=== PATIENT | male | born 1950 | race Caucasian/White ===

== ENCOUNTER 2019-03-14 12:55 | Day surgery (SDC) | payer MEDICARE ==
[~2019-03-14] VITALS: Ht 188 cm; Wt 93.4 kg
[~2019-03-14 12:55] MED LIST: LOVASTATIN20 MG PO
--- NOTE | 2019-03-14 15:31 | NUR ---
03/14/19 1531 Charley Espino 1502 PT ARRIVED IN PACU AWAKE TALKING TO STAFF. ABD SOFT. 1510 DR AT BESIDE TALKING WITH PT. NO C/O'S. 1525 AWAKE SITTING UP IN BED.
--- NOTE | 2019-03-15 10:51 | OR ---
[facility] [address] [place], [place] [address] Signed DATE OF OPERATION: 03/14/2019 SURGEON: Evgeny Sweet MD PREOPERATIVE DIAGNOSES: 1. Colon screening. 2. Family history of polyp (brother). POSTOPERATIVE DIAGNOSES: 1. Polyp at 45 cm (excised). 2. Diverticulosis. PROCEDURE PERFORMED: Total colonoscopy to cecum with cold morcellation polypectomy x1. ANESTHESIA: Intravenous sedation, fentanyl 100 mcg, Versed 7 mg. INDICATION: This 68-year-old white man is a patient of YARON De La Vega. He has never had colonoscopy in the past. He is symptom free having no bleeding, diarrhea, or constipation. He does have family history of a brother with colon polyps in the past, but no family history of colon cancer that he is aware of. He is admitted to undergo colonoscopy for the first time. He understands the risk of bleeding, infection, and perforation. FINDINGS: The prep was excellent. Complete colonoscopy was undertaken of the cecum without question. Numerous diverticula were seen in the sigmoid and left colon. There was a polyp of 45 cm, which was excised. The remaining colon was normal. DESCRIPTION OF PROCEDURE: The patient was brought to the endoscopy suite and placed in lateral decubitus position, given intravenous sedation to the point of slurred speech and nystagmus. Digital rectal examination was normal. An Olympus video colonoscope was passed in the rectum and manipulated into the colon. Numerous diverticula were seen in the sigmoid and left colon. With all due care, was passed and ultimately scope passed to the cecum itself. Ileocecal valve and appendiceal orifice were normal. Electronically Signed By: EVGENY SWEET MD 03/15/19 1051 PATIENT NAME: SHANNON FORDE OPERATIVE REPORT DATE OF : 54 REPORT #: [id number] PHYSICIAN: EVGENY SWEET MD PCP: VALERIANO CABAN REPORT IS CONFIDENTIAL AND NOT TO BE RELEASED WITHOUT AUTHORIZATION [facility] [address] [place], [place] [address] Signed Scope was carefully withdrawn from that point and examination throughout showed no sign of abnormality until 45 cm from the anal verge, where a small polyp was noted. It may be hyperplastic. It was about 8 mm in size. It was excised with cold morcellation technique. Further withdrawal of scope confirmed additional diverticula in the sigmoid. Retroflexed view of the rectum was normal. Scope was removed. The patient was taken to recovery room in good condition. CONCLUDING DIAGNOSES: 1. Polyp at 45 cm (excised). 2. Diverticulosis. PLAN: Recommend repeat colonoscopy in 5 years, sooner if symptoms should occur. A high-fiber diet would be recommended as well. He will return to the ongoing care of YARON De La Vega. MD JOSH Ramirez/JERICA /[id number] cc: YARON Blanton Copies: VALERIANO CABAN ~ Electronically Signed By: EVGENY SWEET MD 03/15/19 1051 PATIENT NAME: SHANNON FORDE BREA OPERATIVE REPORT DATE OF : 54 REPORT #: [id number] PHYSICIAN: EVGENY SWEET MD PCP: VALERIANO CABAN REPORT IS CONFIDENTIAL AND NOT TO BE RELEASED WITHOUT AUTHORIZATION
--- NOTE | 2019-03-15 15:53 | PATH ---
[facility] [address] [place] [id number] Signed SPECIMEN(S): A COLON POLYP AT 35 CM SPECIMEN SOURCE: A. COLON POLYP AT 35 CM CLINICAL HISTORY: Screening. Postop: Polyp and diverticulosis. MICROSCOPIC DESCRIPTION: Histologic sections of all submitted blocks are examined by light microscopy. These findings, together with the gross examination, support the pathologic diagnosis. FINAL PATHOLOGIC DIAGNOSIS: Mucosa, colon at 35 cm, biopsy: - Hyperplastic polyp. LJA:cml:C2NR GROSS DESCRIPTION: The specimen, labeled "CH, colon polyp at 35 cm," is received in formalin and consists of two, 0.1-0.2 cm rodriguez fragments. Specimen is entirely submitted in cassette (A1). AM (under the direct supervision of a pathologist) The Gross Description was prepared using a voice recognition system. The report was reviewed for accuracy; however, sound-alike word errors, addition and/or deletions may occur. If there is any question about this report, please contact Client Services. PERFORMING LABORATORY: The technical component was performed by [facility], [address] [place] [id number] (Fashion Merchandiser: Analia Ortiz MD; CLIA# [id number]). [facility] interpretation was [facility] by [email or web address], [address] [address] (Fashion Merchandiser: Bryan Serrano MD; CLIA# [id number]). Diagnostician: Bryan Serrano MD Pathologist Electronically Signed 03/15/2019 Copies: PATIENT NAME: SHANNON FORDE PATHOLOGY DATE OF : 54 REPORT #: [id number] PHYSICIAN: JUN PEARCE PCP: VALERIANO CABAN REPORT IS CONFIDENTIAL AND NOT TO BE RELEASED WITHOUT AUTHORIZATION [address] [address] Signed ~ PATIENT NAME: SHANNON FORDE PATHOLOGY DATE OF : 54 REPORT #: [id number] PHYSICIAN: JUN PEARCE PCP: VALERIANO CABAN REPORT IS CONFIDENTIAL AND NOT TO BE RELEASED WITHOUT AUTHORIZATION
== END 2019-03-14 15:40 | disposition home or self-care (01) ==
LOC: OPS 12:55 → DS 13:07 → OPS 14:00
PROVIDERS: Surgery
PROC: 0DBE8ZZ Excision of Large Intestine, Via Natural or Artificial Opening Endoscopic (ICD-10-PCS; principal; 2019-03-14 14:00)
DX: Z12.11 Encounter for screening for malignant neoplasm of colon (principal); K63.5 Polyp of colon; K57.30 Diverticulosis of large intestine without perforation or abscess without bleeding; Z86.010 Personal history of colon polyps; Z87.891 Personal history of nicotine dependence
CPT/HCPCS: 99153; G0500; J2250; J3010; J7120

== ENCOUNTER 2023-02-06 09:14 | Emergency (ER) | payer MEDICARE ==
[~2023-02-06] VITALS: Ht 185.4 cm; Wt 92.7 kg
[~2023-02-06 09:14] MED LIST changes: +ASPIRIN EC325 MG PO; +CENTRUM MEN'S1 EACH PO; +DICLOFENAC SODI75 MG PO; +DILAUDID4 MG PO; +GABAPENTIN600 MG PO
[2023-02-06 10:14] LABS: INFLUENZA B NAA NEGATIVE (NEGATIVE); RESPIRATORY SYNCYTIAL VIR NAA NEGATIVE (NEGATIVE)
[2023-02-06] MEDS ORDERED: PAXLOVID 300-11 EACH PO ×2 (10:55→11:40)
[2023-02-06 11:09] LABS: BASOPHILS 0.5 % (0-2); EOSINOPHILS 1.7 % (0-6); HEMATOCRIT 47.5 % (35.0-50.0); HEMOGLOBIN 16.6 g/dL (12.0-18.0); LYMPHOCYTES 9.7 % (24-44); MCH 30.3 (27-36); MCHC 34.9 g/dl (30-36); MCV 86.7 fl (81-99); MONOCYTES 8.4 % (0-12); NEUTROPHILS 79.7 % (39-80); PLATELET COUNT 170 K/uL (140-440); RBC 5.48 M/ul (4.3-5.7); RDW 13.2 (10.5-15.0)
[2023-02-06 11:17] LABS: ANION GAP 8.4 (7-21); BUN/CREATININE RATIO 14.73 (6.0-28.6); CALCIUM 9.5 mg/dL (8.5-10.1); CREATININE, SERUM 0.95 mg/dL (0.70-1.30); POTASSIUM 3.4 mmol/L (3.5-5.1)
[2023-02-06 11:54] VITALS: BP 137/79
== END 2023-02-06 11:50 | disposition home or self-care (01) ==
LOC: ED 09:14
PROVIDERS: Emergency Medicine
DX: U07.1 COVID-19 (principal); I10 Essential (primary) hypertension; E78.00 Pure hypercholesterolemia, unspecified; Z87.891 Personal history of nicotine dependence; Z79.899 Other long term (current) drug therapy
CPT/HCPCS: 36415; 80048; 85025; 87502; 96374; 99283-25; C9803; J1885; U0002

== ENCOUNTER 2024-09-18 11:45 | Day surgery (SDC) | payer MEDICARE ==
[~2024-09-18] VITALS: Ht 188 cm; Wt 91.4 kg
[~2024-09-18 11:45] MED LIST changes: +CEFAZOLIN SODIUM 2 GM/20 ML SYR IV SCH; +IBLOOD GLUCOSE TEST STRIP 1 EA TEST VI PRN; +INDAPAMIDE2.5 MG PO; +LACTATED RINGER'S 1,000 ML IV SCH; +LIDOCAINE HCL 1% 5 ML SDV INJ ONE; +MIDAZOLAM HCL 5 MG/5 ML VIAL IV PRN; +PAXLOVID 300-11 EACH PO; +SILDENAFIL20 MG PO; +fentaNYL citrate 100 MCG/2 ML VIAL IV PRN
[2024-09-18] MEDS ORDERED: MIDAZOLAM HCL 5 MG/5 ML VIAL ONE (12:21)
[2024-09-18] MEDS ORDERED: fentaNYL citrate 100 MCG/2 ML VIAL ONE (12:21)
[2024-09-18 12:29] VITALS: BP 139/86
--- NOTE | 2024-09-18 13:55 | NUR ---
09/18/24 1355 Mei Arredondo 1347-PT ARRIVES TO PACU VIA STRETCHER, RESTING ON LT SIDE. PT A+OX4, DENIES PAIN OR NAUSEA, VSS ON 2L VIA NC, PT ENCOURAGED TO PASS GAS. 1350-PT TITRATED TO RA, VS REMAIN STABLE.
[2024-09-18 14:34] VITALS: BP 123/70
--- NOTE | 2024-09-20 11:03 | OR ---
[facility] [address] [place], [place] [address] Signed DATE OF OPERATION: 09/18/2024 SURGEON: Evgeny Sweet MD PREOPERATIVE DIAGNOSES: 1. Family history of colon cancer (mother age 41). 2. History of hyperplastic polyps and diverticulosis. POSTOPERATIVE DIAGNOSES: Sigmoid diverticulosis and hyperplastic polyps of rectosigmoid. PROCEDURE: Total colonoscopy to cecum with cold morcellation polypectomy x3. ANESTHESIA: Intravenous sedation; fentanyl 100 mcg and Versed 4 mg. INDICATION: This 73-year-old white man is a patient of Nataliya Stokes and known to me from the past having undergone colonoscopy in 2019. He was recommend to have repeat in 5 years based on family history of colon cancer in his mother. At the time of his previous colonoscopy, he had diverticulosis as well as hyperplastic polyps. He is admitted at this time to undergo colonoscopy. He understands the risk of bleeding, infection, and perforation. FINDINGS: The prep was good. Complete colonoscopy was undertaken of the cecum. He had numerous diverticula of the sigmoid. There are three small hyperplastic polyps of the rectosigmoid. DESCRIPTION OF PROCEDURE: The patient was brought to the endoscopy suite and placed in the lateral decubitus position, given intravenous sedation to the point of slurred speech and nystagmus. Full cardiopulmonary monitoring was maintained. Digital rectal examination was normal. An Olympus video colonoscope was passed in the rectum and manipulated throughout the colon ultimately intubating the cecum itself. The ileocecal valve and appendiceal orifice was normal. The scope was withdrawn from that point and examination throughout showed no sign of abnormality other than diverticula of the sigmoid. There were three hyperplastic appearing polyps of the rectosigmoid, these were excised with cold Electronically Signed By: EVGENY SWEET MD 09/20/24 1103 PATIENT NAME: SHANNON FORDE OPERATIVE REPORT DATE OF : 54 REPORT #: [id number] PHYSICIAN: EVGENY SWEET MD PCP: NATALIYA STOKES PA-C REPORT IS CONFIDENTIAL AND NOT TO BE RELEASED WITHOUT AUTHORIZATION [facility] [address] [place], [place] [address] Signed morcellation technique. Retroflexed view was normal. The scope was removed and the patient was taken to the recovery room in good condition. CONCLUDING DIAGNOSES: Hyperplastic polyps x3 and diverticulosis. PLAN: Recommend repeat colonoscopy in 5 years based on family history of colon cancer in his mother, sooner if symptoms should develop. Recommend also high-fiber diet. MD JOSH Ramirez/JERICA /[id number] cc: Nataliya Stokes PA-C Copies: NATALIYA STOKES PA-C ~ Electronically Signed By: EVGENY SWEET MD 09/20/24 1103 PATIENT NAME: SHANNON FORDE OPERATIVE REPORT DATE OF : 54 REPORT #: [id number] PHYSICIAN: EVGENY SWEET MD PCP: NATALIYA STOKES PA-C REPORT IS CONFIDENTIAL AND NOT TO BE RELEASED WITHOUT AUTHORIZATION
--- NOTE | 2024-09-20 15:13 | PATH ---
[facility] [address] [facility] [place] [address] Signed SPECIMEN(S): A RECTAL POLYPS SPECIMEN SOURCE: A. RECTAL POLYPS CLINICAL HISTORY: Personal history of colon polyps, family history of colon polyps, mother from possible colon cancer FINAL PATHOLOGIC DIAGNOSIS: Rectal polyps: - Hyperplastic polyps (multiple fragments). JVR:eran MICROSCOPIC EXAMINATION: Histologic sections of all submitted blocks are examined by light microscopy. These findings, together with the gross examination, support the pathologic diagnosis. GROSS DESCRIPTION: The specimen, labeled and designated "krysten Forde," is received in formalin and consists of four rodriguez soft tissue fragments, ranging from 0.2-0.3 cm. Entirely submitted in (A1). VB (under the direct supervision of a pathologist) The Gross Description was prepared using a voice recognition system. The report was reviewed for accuracy; however, sound-alike word errors, addition and/or deletions may occur. If there is any question about this report, please contact Client Services. PERFORMING LABORATORY: Technical component was performed by [email or web address], [address] [place] [id number] (CLIA# [id number]). Professional interpretation was performed by [facility], [address] [place] [id number] (CLIA#: [id number]). Diagnostician: Aravind Grant MD Pathologist Electronically Signed 09/20/2024 Copies: PATIENT NAME: SHANNON FORDE PATHOLOGY DATE OF : 54 REPORT #: [id number] PHYSICIAN: JUN PATHOLOGY PCP: JUANJOSE THORNTON PA-C REPORT IS CONFIDENTIAL AND NOT TO BE RELEASED WITHOUT AUTHORIZATION [address] [address] Signed ~ PATIENT NAME: SHANNON FORDE PATHOLOGY DATE OF : 54 REPORT #: [id number] PHYSICIAN: JUN PATHOLOGY PCP: JUANJOSE THORNTON PA-C REPORT IS CONFIDENTIAL AND NOT TO BE RELEASED WITHOUT AUTHORIZATION
== END 2024-09-18 14:50 | disposition home or self-care (01) ==
LOC: DS 11:45
PROVIDERS: ATTEND Surgery
PROC: 0DBN8ZZ Excision of Sigmoid Colon, Via Natural or Artificial Opening Endoscopic (ICD-10-PCS; principal; 2024-09-18 13:00)
DX: Z12.11 Encounter for screening for malignant neoplasm of colon (principal); K63.5 Polyp of colon; K57.30 Diverticulosis of large intestine without perforation or abscess without bleeding; I10 Essential (primary) hypertension; E78.5 Hyperlipidemia, unspecified; Z80.0 Family history of malignant neoplasm of digestive organs; Z96.651 Presence of right artificial knee joint; Z79.899 Other long term (current) drug therapy
CPT/HCPCS: 88305; 99153; G0500; J0690; J2250; J3010; J7121